=== PATIENT | male | born 1945 | race African-American/Black ===

== ENCOUNTER → 2017-08-07 | Outpatient (CLI) | payer BC, MEDICARE ==
[~2017-08-07] MED LIST: REGADENOSON 0.4 MG/5 ML DISP.SYRIN. IV ONE
--- NOTE | 2017-08-11 14:08 | PCVCIMAG ---
APPROVED REPORT Exam: Nuclear Stress Test Indication: Chest Pain Patient Location: Out-Patient Stress Nurse: Fany Vazquez RN, Rosalia Correia RN [place] Tech:Jj Leos NMTCB Ht: 5 ft 8 in Wt: 170 lbs BSA: 1.91 m2 HR: 61 bpm BP: 190/85 mmHg BMI: 25.8 Rhythm: SR Medical History Medical History: Age, Hyperlipidemia, HTN, CAD, DM Insulin Medications: ASA, Novolog, Lantus, Cozaar, Toprol XL (held 24 hours) Effient, Repatha, Nitrostat (none today) Allergies: Codeine Previous Cardiac Procedures: CABG, PCI, 2014 Pretest Chest Pain Characteristics: No chest pain Exercise History: Sedentary NM EXAM: Myocardial Perfusion REST/STRESS Imaging Protocol: Rest Tc-99m/Stress Tc-99m 1 day Resting Data Rest SPECT myocardial perfusion imaging was performed in supine position 45 minutes following the intravenous injection of 12 mCi of Tc-99m Sestamibi. Time of rest injection: 0840 Date: 08/07/2017 Pharmacologic Stress Pharmacologic stress test was performed by injecting Regadenoson 0.4 mg IV push followed by the intravenous injection of 34.5 mCi of Tc-99m Sestamibi. Time of stress injection: 1015 Date: 08/07/2017 The images were gated to evaluate regional wall motion and calculate left ventricular ejection fraction. Study Quality Study: Good Study Data Post stress, the left ventricular ejection was 68%.. SSS: 0 SRS: 0 SDS: 0 TID = 1.07. Perfusion No evidence of stress induced ischemia or prior myocardial infarction. Wall Motion Normal left ventricular size and function with no regional wall motion abnormalities. Nuclear Conclusion No evidence of stress induced ischemia or prior myocardial infarction. Normal left ventricular size and function with no regional wall motion abnormalities. Post stress, the left ventricular ejection was 68%.. No change since prior study dated October 2015. Interpreted by: Pilo Atkinson MD Electronically Approved: 08/07/2017 17:32:03 Stress Test Details Stress Test: Pharmacologic stress was paired with low level exercise. Reason for pharmacologic stress test: physical limitation. HR Resting HR: 61 bpmMax Heart Rate (APMHR): 151 bpm Max HR Achieved: 102 bpmTarget HR (85% APMHR): 128 bpm % of APMHR: 67 Recovery HR: 65 bpm BP Resting BP: 190/85 mmHg Max BP: 160/76 mmHg ECG Resting ECG: Sinus Rhythm Stress ECG: Sinus Rhythm, NSSTT changes ST Change: Horizontal ST depression Maximum ST Deviation: 2.0 mm Arrhythmia: None Recovery ECG: Sinus Rhythm, NSSTT changes Clinical Reason for Termination: Completed protocol Stress Symptoms: Dyspnea Exercise duration: 4.0 min sec Exercise capacity: 1.6 METs Symptoms resolved during recovery. Stress ECG Conclusion abn ekg response <Conclusion> abn ekg response
== END | disposition home or self-care (01) ==
LOC: PCVCIMAG 08:31
PROVIDERS: ATTEND Internal Medicine Cardiovascular Disease
DX: I25.10 Atherosclerotic heart disease of native coronary artery without angina pectoris (principal); I10 Essential (primary) hypertension; E11.9 Type 2 diabetes mellitus without complications; E78.5 Hyperlipidemia, unspecified; K52.9 Noninfective gastroenteritis and colitis, unspecified; R94.31 Abnormal electrocardiogram [ECG] [EKG]; Z95.1 Presence of aortocoronary bypass graft
CPT/HCPCS: 78452; 93017; A9500; J2785

== ENCOUNTER → 2018-02-16 | Outpatient (CLI) | payer OTHER, MEDICARE | END | disposition home or self-care (01) | LOC: PCVCCLINIC 10:42 | DX: I12.9 Hypertensive chronic kidney disease with stage 1 through stage 4 chronic kidney disease, or unspecified chronic kidney disease (principal); N18.9 Chronic kidney disease, unspecified; E11.22 Type 2 diabetes mellitus with diabetic chronic kidney disease; I25.10 Atherosclerotic heart disease of native coronary artery without angina pectoris; E78.00 Pure hypercholesterolemia, unspecified; I25.5 Ischemic cardiomyopathy; R94.31 Abnormal electrocardiogram [ECG] [EKG]; Z95.1 Presence of aortocoronary bypass graft; Z79.899 Other long term (current) drug therapy; Z79.82 Long term (current) use of aspirin | CPT/HCPCS: 80061; 93005; G0463 ==

== ENCOUNTER → 2018-09-21 | Outpatient (CLI) | payer OTHER, MEDICARE | END | disposition home or self-care (01) | LOC: PCVCCLINIC 14:11 | PROVIDERS: ATTEND Internal Medicine Cardiovascular Disease | DX: I25.10 Atherosclerotic heart disease of native coronary artery without angina pectoris (principal); E78.00 Pure hypercholesterolemia, unspecified; I10 Essential (primary) hypertension; R00.1 Bradycardia, unspecified; E11.22 Type 2 diabetes mellitus with diabetic chronic kidney disease; I12.9 Hypertensive chronic kidney disease with stage 1 through stage 4 chronic kidney disease, or unspecified chronic kidney disease; N18.9 Chronic kidney disease, unspecified; Z79.82 Long term (current) use of aspirin | CPT/HCPCS: 80061; 93005; G0463 ==

== ENCOUNTER → 2018-10-30 | Outpatient (CLI) | payer OTHER, MEDICARE | END | disposition home or self-care (01) | LOC: PCVCCLINIC 14:04 | PROVIDERS: ATTEND Internal Medicine Cardiovascular Disease | DX: I25.10 Atherosclerotic heart disease of native coronary artery without angina pectoris (principal); E11.9 Type 2 diabetes mellitus without complications; I10 Essential (primary) hypertension; E78.00 Pure hypercholesterolemia, unspecified; R42 Dizziness and giddiness; R55 Syncope and collapse; I65.23 Occlusion and stenosis of bilateral carotid arteries; R07.9 Chest pain, unspecified; M19.90 Unspecified osteoarthritis, unspecified site; I25.5 Ischemic cardiomyopathy; Z95.1 Presence of aortocoronary bypass graft; Z79.4 Long term (current) use of insulin; Z79.82 Long term (current) use of aspirin | CPT/HCPCS: 80061; 93005; G0463 ==

== ENCOUNTER → 2018-11-06 | Outpatient (CLI) | payer OTHER, MEDICARE ==
--- NOTE | 2018-11-06 09:18 | PCVCIMAG ---
APPROVED REPORT Laterality: Bilateral Indications CVA/TIA: Doppler Spectral Velocity Analysis PSV / EDVPSV / EDV ECA (R) 51 / 8 cm/sECA (L) 43 / 5 cm/s dICA (R) 86 / 30 cm/sdICA (L) 56 / 20 cm/s Chayo (R) 89 / 26 cm/smICA (L) 72 / 28 cm/s pICA (R) 49 / 13 cm/spICA (L) 49 / 13 cm/s Bulb (R) 46 / 9 cm/sBulb (L) 28 / 7 cm/s dCCA (R) 89 / 18 cm/sdCCA (L) 63 / 13 cm/s mCCA (R) 103 / 23 cm/smCCA (L) 112 / 15 cm/s Vert (R) 59 / 0 cm/sVert (L) 54 / 13 cm/s ICA/CCA 1.00ICA/CCA 1.14 Findings The right carotid bulb has minimal plaque. The right proximal internal carotid artery shows no significant stenosis. The right common carotid artery shows no significant stenosis. The right external carotid artery shows no significant stenosis. The left carotid bulb has mild plaque. The left proximal internal carotid artery shows <40% stenosis. The left common carotid artery shows no significant stenosis. The left external carotid artery shows no significant stenosis. Conclusion 1. Right internal carotid with minimal plaquing 2. Left internal carotid with mild plaquing (<40% stenosis) 3. Antegrade vertebral flow Similar to a study dated October 2015
--- NOTE | 2018-11-06 13:11 | PCVCIMAG ---
APPROVED REPORT Study performed: 11/06/2018 08:03:11 EXAM: Comprehensive 2D, Doppler, and color-flow Echocardiogram Patient Location: Echo lab Room #: 2Status: routine BSA: 1.93 HR: 62 bpmBP: 132/68 mmHg Rhythm: NSR Other Information Study Quality: Adequate Risk Factors: Cardiac Risk Factors: HTN, Hyperlipidemia, DM Indications Diabetes CAD Chest Pain Hypertension/HDD S/P CABG 2D Dimensions IVSd: 14.66 (7-11mm)LVOT Diam: 23.06 (18-24mm) LVDd: 42.78 mm PWd: 11.98 (7-11mm)Ascending Ao: 30.68 (22-36mm) LVDs: 26.49 (25-40mm) Left Atrium: 30.76 (27-40mm) Aortic Root: 30.07 mm LV Single Plane 4CH: 55.10 % LV Single Plane 2CH: 66.26 % Biplane EF: 61.8 % Volumes Left Atrial Volume (Systole) Single Plane 4CH: 29.70 mLSingle Plane 2CH: 37.39 mL Biplane LA Volume: 36.00 mLLA ESV Index: 19.00 mL/m2 Aortic Valve AoV Peak Misael.: 1.31 m/s AO Peak Gr.: 6.86 mmHgLVOT Max P.96 mmHg LVOT Max V: 0.86 m/s FRANKLIN Vmax: 2.74 cm2 Mitral Valve E/A Ratio: 1.4 MV Decel. Time: 240.45 ms MV E Max Misael.: 0.63 m/s MV A Misael.: 0.45 m/s IVRT: 65.74 ms TDI E/Lateral E': 7.00E/Medial E': 7.88 Medial E' Misael.: 0.08 m/s Lateral E' Misael.: 0.09 m/s Pulmonary Valve PV Peak Misael.: 0.78 m/sPV Peak Gr.: 2.46 mmHg Pulmonary Vein P Vein S: 0.38 m/sP Vein A: 0.22 m/s P Vein D: 0.45 m/sP Vein A Dur.: 58.8 msec P Vein S/D Ratio: 0.84 Tricuspid Valve TR Peak Misael.: 1.98 m/s TR Peak Gr.: 15.65 mmHg TV Vmax: 0.49 m/sPA Pressure: 23.00 mmHg Left Ventricle The left ventricle is normal size. There is normal LV segmental wall motion. Mild concentric left ventricular hypertrophy. Left ventricular systolic function is normal. The left ventricular ejection fraction is within the normal range. LVEF is 60-65%. The left ventricular diastolic function is normal. Right Ventricle The right ventricle is normal size. The right ventricular systolic function is normal. Atria The left atrium size is normal. The right atrium size is normal. Aortic Valve Aortic valve is trileaflet. Mild aortic valve sclerosis. No aortic regurgitation is present. There is no aortic valvular stenosis. Mitral Valve The mitral valve is normal in structure. There is no mitral valve regurgitation noted. No evidence of mitral valve stenosis. Tricuspid Valve The tricuspid valve is normal in structure. Trace to mild tricuspid regurgitation with a PA pressure of 23 mmHg No pulmonary hypertension.. Pulmonic Valve The pulmonary valve is normal in structure. Trace pulmonic regurgitation. Great Vessels The aortic root is normal in size. Aortic arch is not well visualized. The ascending aorta is normal in size. Aortic arch is normal in caliber. There is moderate plaque in the portion of the aortic arch which can be visualized IVC is normal in size and collapses >50% with inspiration. Pericardium There is no pericardial effusion. There is no pleural effusion. <Conclusion> The left ventricle is normal size. LVEF is 60-65%. The left ventricular diastolic function is normal. Mild concentric left ventricular hypertrophy. The left atrium size is normal. Aortic valve is trileaflet. Mild aortic valve sclerosis. There is no mitral valve regurgitation noted. Trace to mild tricuspid regurgitation with a PA pressure of 23 mmHg No pulmonary hypertension.. The aortic root is normal in size. There is no pericardial effusion.
--- NOTE | 2018-11-06 16:58 | PCVCIMAG ---
APPROVED REPORT Imaging Protocol: Rest Tc-99m/Stress Tc-99m 1 day Study performed: 11/06/2018 09:37:31 Indication: CAD , Pre-Syncope, Chest pain, Dyspnea Patient Location: Out-Patient Stress Nurse: Rosalia Correia RN, Fany Vazquez RN [place] Tech:ALEXANDRA BurnsMT Ht: 5 ft 8 in Wt: 174 lbs BSA: 1.93 m2 HR: 73 bpm BP: 170/88 mmHg BMI: 26.4 Rhythm: Sinus Rhythm, Left Ventricular Hypertrophy Medical History Medical History: HTN, Hyperlipidemia, CVD, Diabetic Insulin, Age Medications: ASA, Insulin, Tapazole, Toprol, Effient, Crestor, Benicar Allergies: Codeine Previous Cardiac Procedures: CABG - 1992, PCI - 2014 to LAD & CX Pretest Chest Pain Characteristics: No chest pain Exercise History: Indeterminate Physical Disabilities: Orthopedic injuries Meds Held (24 hrs): Metoprolol Resting Data Rest SPECT myocardial perfusion imaging was performed in supine position 45 minutes following the intravenous injection of 10.9 mCi of Tc-99m Sestamibi. Time of rest injection: Date: 11/06/2018 Administration Route: IV Administration Site: Right AC Pharmacologic Stress Pharmacologic stress test was performed by injecting Regadenoson 0.4 mg IV push over 10-15 seconds immediately followed by the intravenous injection of 35.2 mCi of Tc-99m Sestamibi. Time of stress injection: 1040 Date: 11/06/2018 Administration Route: IV Administration Site: Right AC Gated Stress SPECT was performed 45 minutes after stress injection. The images were gated to evaluate regional wall motion and calculate left ventricular ejection fraction. Stress Test Details Stress Test: Pharmacologic stress was paired with low level exercise. HRMax Heart Rate (APMHR): 149 bpm Resting HR: 73 bpmTarget HR (85% APMHR): 126 bpm Max HR Achieved: 110 bpm % of APMHR: 73 Recovery HR: 66 bpm BP Resting BP: 170/88 mmHg Max BP: 180/80 mmHg Recovery BP: 139/79 mmHg ECG Resting ECG: Sinus Rhythm, LVH with repolarization changes Stress ECG: Sinus Tachycardia, LVH with repolarization changes ST Change: Downsloping ST depression Maximum ST Deviation: 2.5 mm Recovery ECG: Sinus Rhythm, LVH with repolarization changes Clinical Reason for Termination: Completed protocol Stress Symptoms: Dyspnea Exercise duration: 4 min 00 sec Exercise capacity: 1.6 METs Symptoms resolved during recovery. Stress ECG Conclusion ECG: Non-ischemic Study Quality Study: Good Study Data Post stress, the left ventricular ejection was 60%.. SSS: 2 SRS: 1 SDS: 2 TID = 1.12. Perfusion No evidence of stress induced ischemia or prior myocardial infarction. Wall Motion Normal left ventricular size and function with no regional wall motion abnormalities. Nuclear Conclusion No evidence of stress induced ischemia or prior myocardial infarction. Normal left ventricular size and function with no regional wall motion abnormalities. Post stress, the left ventricular ejection was 60%. No change since prior study dated October 2015. Interpreted by: Pilo Atkinson MD Electronically Approved: 11/06/2018 16:04:29 <Conclusion> ECG: Non-ischemic
== END | disposition home or self-care (01) ==
LOC: PCVCIMAG 08:04
PROVIDERS: ATTEND Internal Medicine Cardiovascular Disease
DX: I65.23 Occlusion and stenosis of bilateral carotid arteries (principal); R09.89 Other specified symptoms and signs involving the circulatory and respiratory systems; I25.10 Atherosclerotic heart disease of native coronary artery without angina pectoris; E11.9 Type 2 diabetes mellitus without complications; I10 Essential (primary) hypertension; R07.9 Chest pain, unspecified; R55 Syncope and collapse; R06.09 Other forms of dyspnea; E78.5 Hyperlipidemia, unspecified; Z95.1 Presence of aortocoronary bypass graft
CPT/HCPCS: 78452; 93017; 93306; 93880; A9500; J2785

== ENCOUNTER → 2019-05-03 | Outpatient (CLI) | payer OTHER, MEDICARE ==
--- NOTE | 2019-05-03 14:39 | PCVCIMAG ---
EXAM: BILATERAL LOWER EXTREMITY ARTERIAL DUPLEX INDICATION: Peripheral Arterial Disease. Leg pain. FINDINGS: Right Leg: Common femoral and profunda femoral arteries are patent. Superficial femoral artery and popliteal artery are patent. Occlusion throughout the anterior tibial artery. The peroneal artery and posterior tibial artery are patent. Left Leg: Common femoral and profunda femoral arteries are patent. Superficial femoral artery and popliteal artery are patent. The anterior tibial and mid/distal peroneal arteries are occluded. Increased systolic velocity 514 cm/s proximal posterior tibial artery consistent with 90% stenosis. Mid and distal posterior tibial artery is patent. IMPRESSION: Occlusion right anterior tibial artery. Otherwise no flow limiting stenosis in the right lower extremity. 90% stenosis proximal left posterior tibial artery which is the patient's only runoff vessel on the left. Occlusion throughout the left anterior tibial artery and mid/distal left peroneal artery. Incidental note is made of 1.0 x 1.4 x 3.8 cm left popliteal cyst. LOC:[id number]
== END | disposition home or self-care (01) ==
LOC: PCVCIMAG 08:56
PROVIDERS: ATTEND Nuclear Medicine Nuclear Cardiology
DX: I73.9 Peripheral vascular disease, unspecified (principal)
CPT/HCPCS: 93925

== ENCOUNTER → 2019-05-04 | Outpatient (CLI) | payer OTHER, MEDICARE | END | disposition home or self-care (01) | LOC: PCVCCLINIC 09:00 | PROVIDERS: ATTEND Nuclear Medicine Nuclear Cardiology | DX: I12.9 Hypertensive chronic kidney disease with stage 1 through stage 4 chronic kidney disease, or unspecified chronic kidney disease (principal); E11.22 Type 2 diabetes mellitus with diabetic chronic kidney disease; E11.51 Type 2 diabetes mellitus with diabetic peripheral angiopathy without gangrene; N18.9 Chronic kidney disease, unspecified; I77.9 Disorder of arteries and arterioles, unspecified; E78.00 Pure hypercholesterolemia, unspecified; I25.10 Atherosclerotic heart disease of native coronary artery without angina pectoris; Z88.8 Allergy status to other drugs, medicaments and biological substances; Z79.82 Long term (current) use of aspirin; Z79.899 Other long term (current) drug therapy | CPT/HCPCS: 36415; G0463 ==

== ENCOUNTER → 2019-06-02 | Outpatient (CLI) | payer OTHER, MEDICARE | END | disposition home or self-care (01) | LOC: PCVCCLINIC 14:00 | PROVIDERS: ATTEND Internal Medicine Cardiovascular Disease | DX: I25.10 Atherosclerotic heart disease of native coronary artery without angina pectoris (principal); I10 Essential (primary) hypertension; E78.00 Pure hypercholesterolemia, unspecified; E10.9 Type 1 diabetes mellitus without complications; I73.9 Peripheral vascular disease, unspecified; M19.90 Unspecified osteoarthritis, unspecified site; Z79.82 Long term (current) use of aspirin | CPT/HCPCS: 36415; 80061; 93005; G0463 ==

== ENCOUNTER → 2019-09-07 | Outpatient (CLI) | payer OTHER, MEDICARE ==
--- NOTE | 2019-09-07 11:12 | PCVCIMAG ---
EXAM: LEFT LOWER EXTREMITY ARTERIAL DUPLEX INDICATION: Peripheral Arterial Disease. Leg pain. FINDINGS: Left Leg: Common femoral and profunda femoral arteries are patent. Superficial femoral artery and popliteal artery are patent. Peroneal and posterior tibial arteries are patent. Previous stent proximal posterior tibial artery is patent. Occlusion throughout the anterior tibial artery is unchanged. IMPRESSION: Previous proximal left posterior tibial artery stent maintaining good patency. Occlusion throughout the left anterior tibial artery. Otherwise no flow limiting stenosis in the left lower extremity. LOC:[id number]
== END | disposition home or self-care (01) ==
LOC: PCVCIMAG 10:15
PROVIDERS: ATTEND Nuclear Medicine Nuclear Cardiology
DX: I70.202 Unspecified atherosclerosis of native arteries of extremities, left leg (principal); E11.9 Type 2 diabetes mellitus without complications; I10 Essential (primary) hypertension; E78.00 Pure hypercholesterolemia, unspecified; Z88.5 Allergy status to narcotic agent
CPT/HCPCS: 93926